=== PATIENT | female | born 1935 | race Caucasian/White ===

== ENCOUNTER → 2016-09-19 | Outpatient (CLI) | payer MEDICARE, BC | END | disposition home or self-care (01) | LOC: PCVCCLINIC 14:30 | PROVIDERS: ATTEND Internal Medicine Cardiovascular Disease | DX: I48.91 Unspecified atrial fibrillation (principal); E78.5 Hyperlipidemia, unspecified; I87.2 Venous insufficiency (chronic) (peripheral); I10 Essential (primary) hypertension; Z88.0 Allergy status to penicillin; Z88.1 Allergy status to other antibiotic agents; Z79.899 Other long term (current) drug therapy; Z85.819 Personal history of malignant neoplasm of unspecified site of lip, oral cavity, and pharynx; M81.0 Age-related osteoporosis without current pathological fracture | CPT/HCPCS: 80061; 93005; G0463 ==

== ENCOUNTER → 2016-12-28 | Outpatient (CLI) | payer MEDICARE, BC ==
--- NOTE | 2016-12-28 17:26 | PCVCIMAG ---
EXAM: BILATERAL SUPERFICIAL VENOUS DUPLEX INDICATION: Leg pain and swelling. FINDINGS: Right leg: No thrombus in the common femoral, main femoral, or popliteal veins. These veins are compressible. Right Great Saphenous Vein: At the saphenofemoral junction the diameter is 9.1 mm, in the mid thigh it is 7.1 mm, and in the calf it is 7.2 mm. There is significant venous insufficiency/reflux throughout. Venous insufficiency/reflux duration is 3.6 seconds. Right Small Saphenous Vein: At the saphenopopliteal junction the diameter is 5.9 mm, and in the calf it is 5.0 mm. There is significant venous insufficiency/reflux throughout. Venous insufficiency/reflux duration is 1.1 seconds. There is a cranial extension present. Left leg: No thrombus in the common femoral, main femoral, or popliteal veins. These veins are compressible. Left Great Saphenous Vein: At the saphenofemoral junction the diameter is 9.9 mm, in the mid thigh it is 6.1 mm, and in the calf it is 6.5 mm. There is significant venous insufficiency/reflux throughout. Venous insufficiency/reflux duration is 2.3 seconds. Left Small Saphenous Vein: At the saphenopopliteal junction the diameter is 5.1 mm, and in the calf it is 5.2 mm. There is significant venous insufficiency/reflux throughout. Venous insufficiency/reflux duration is 3.8 seconds. There is a cranial extension present. IMPRESSION: Right Great Saphenous Vein: Significant venous insufficiency/reflux is present as noted above. Right Small Saphenous Vein: Significant venous insufficiency/reflux is present as noted above. Left Great Saphenous Vein: Significant venous insufficiency/reflux is present as noted above. Left Small Saphenous Vein: Significant venous insufficiency/reflux is present as noted above. LOC:[id number]
== END | disposition home or self-care (01) ==
LOC: PCVCIMAG 15:06
PROVIDERS: ATTEND Nuclear Medicine Nuclear Cardiology
DX: I87.2 Venous insufficiency (chronic) (peripheral) (principal); I10 Essential (primary) hypertension; I48.1 Persistent atrial fibrillation; I07.1 Rheumatic tricuspid insufficiency; E78.00 Pure hypercholesterolemia, unspecified; G25.0 Essential tremor; E03.9 Hypothyroidism, unspecified; M81.0 Age-related osteoporosis without current pathological fracture; M19.90 Unspecified osteoarthritis, unspecified site; Z96.653 Presence of artificial knee joint, bilateral; Z90.49 Acquired absence of other specified parts of digestive tract; Z89.422 Acquired absence of other left toe(s); Z88.0 Allergy status to penicillin; Z88.2 Allergy status to sulfonamides
CPT/HCPCS: 93970; G0463

== ENCOUNTER → 2017-05-16 | Outpatient (CLI) | payer MEDICARE, BC | END | disposition home or self-care (01) | LOC: PCVCCLINIC 14:54 | DX: I10 Essential (primary) hypertension (principal); I48.1 Persistent atrial fibrillation; E78.00 Pure hypercholesterolemia, unspecified; I07.1 Rheumatic tricuspid insufficiency; I87.2 Venous insufficiency (chronic) (peripheral); G47.33 Obstructive sleep apnea (adult) (pediatric); R06.02 Shortness of breath; R94.31 Abnormal electrocardiogram [ECG] [EKG]; Z79.899 Other long term (current) drug therapy | CPT/HCPCS: 80061; 93005; G0463 ==

== ENCOUNTER → 2017-07-03 | Outpatient (CLI) | payer MEDICARE, BC | END | disposition home or self-care (01) | LOC: PCVCIMAG 13:53 | DX: I73.9 Peripheral vascular disease, unspecified (principal); L97.919 Non-pressure chronic ulcer of unspecified part of right lower leg with unspecified severity | CPT/HCPCS: 93925 ==

== ENCOUNTER → 2017-12-03 | Outpatient (CLI) | payer MEDICARE, BC ==
--- NOTE | 2017-12-03 16:25 | PCVCIMAG ---
APPROVED REPORT Study performed: 12/03/2017 14:02:34 EXAM: Comprehensive 2D, Doppler, and color-flow Echocardiogram Patient Location: Echo lab Status: routine BSA: 1.67 HR: 116 bpmBP: 100/70 mmHg Rhythm: Atrial Fibrillation Other Information Study Quality: Good Indications Atrial Fibrillation Dyspnea Hypertension/HDD 2D Dimensions LVEF(%): 47.68 (>50%) IVSd: 7.93 (7-11mm)LVOT Diam: 19.74 (18-24mm) LVDd: 40.17 mm PWd: 6.10 (7-11mm)Ascending Ao: 29.69 (22-36mm) LVDs: 30.69 (25-40mm) Left Atrium: 59.07 (27-40mm) Aortic Root: 28.47 mm LV Single Plane 4CH: 55.25 % Orta's LVEF: 47.68 % Volumes Left Atrial Volume (Systole) Single Plane 4CH: 83.36 mLSingle Plane 2CH: 93.78 mL LA ESV Index: 54.00 mL/m2 Aortic Valve AoV Peak Bong.: 1.12 m/s AO Peak Gr.: 5.68 mmHgLVOT Max P.58 mmHg LVOT Max V: 0.75 m/s DEMOND Vmax: 2.03 cm2 Mitral Valve E/A Ratio: 1.0 MV Decel. Time: 889.93 ms MV E Max Bong.: 0.97 m/s MV A Bong.: 0.94 m/s Pulmonary Valve PV Peak Gr.: 1.13 mmHg Tricuspid Valve TR Peak Bong.: 2.96 m/s TR Peak Gr.: 35.18 mmHg Left Ventricle The left ventricle is normal size. There is normal LV segmental wall motion. There is normal left ventricular wall thickness. Left ventricular systolic function is normal. The left ventricular ejection fraction is within the normal range. LVEF is 50-55%. This study is not technically sufficient to allow evaluation of the LV diastolic function due to atrial fibrillation. Right Ventricle Right ventricle is dilated. The right ventricular systolic function is normal. Atria Left atrium is severely dilated. Right atrium is severely dilated. Aortic Valve The aortic valve is normal in structure. No aortic regurgitation is present. There is no aortic valvular stenosis. Mitral Valve The mitral valve is normal in structure. Mild mitral regurgitation. No evidence of mitral valve stenosis. Tricuspid Valve The tricuspid valve is normal in structure. Moderate to severe tricuspid regurgitation. Pulmonary artery pressure is 43mmhg. Pulmonic Valve The pulmonary valve is normal in structure. Trace pulmonic regurgitation. Great Vessels The aortic root is normal in size. IVC is normal in size and collapses with >50% inspiration Pericardium There is no pericardial effusion. <Conclusion> The left ventricle is normal size. LVEF is 50-55%. This study is not technically sufficient to allow evaluation of the LV diastolic function due to atrial fibrillation. Right ventricle is dilated. Left atrium is severely dilated. Right atrium is severely dilated. The aortic valve is normal in structure. Mild mitral regurgitation. Moderate to severe tricuspid regurgitation. Pulmonary artery pressure is 43mmhg. The aortic root is normal in size. There is no pericardial effusion.
== END | disposition home or self-care (01) ==
LOC: PCVCIMAG 15:51
PROVIDERS: ATTEND Internal Medicine Cardiovascular Disease
DX: I48.91 Unspecified atrial fibrillation (principal); G47.33 Obstructive sleep apnea (adult) (pediatric); E78.00 Pure hypercholesterolemia, unspecified; I10 Essential (primary) hypertension; I87.2 Venous insufficiency (chronic) (peripheral); D68.59 Other primary thrombophilia; R06.09 Other forms of dyspnea
CPT/HCPCS: 80061; 93005; 93306; G0463

== ENCOUNTER → 2018-06-18 | Outpatient (CLI) | payer MEDICARE, BC | END | disposition home or self-care (01) | LOC: PCVCCLINIC 15:59 | PROVIDERS: ATTEND Internal Medicine Cardiovascular Disease | DX: I48.1 Persistent atrial fibrillation (principal); I07.1 Rheumatic tricuspid insufficiency; I10 Essential (primary) hypertension; E78.00 Pure hypercholesterolemia, unspecified; I87.2 Venous insufficiency (chronic) (peripheral); R06.02 Shortness of breath; G47.33 Obstructive sleep apnea (adult) (pediatric); M81.0 Age-related osteoporosis without current pathological fracture; E03.9 Hypothyroidism, unspecified; Z79.899 Other long term (current) drug therapy | CPT/HCPCS: 36415; 80061; 93005; G0463 ==

== ENCOUNTER → 2018-08-13 | Outpatient (CLI) | payer MEDICARE, BC | END | disposition home or self-care (01) | LOC: PCVCCLINIC 15:50 | PROVIDERS: ATTEND Internal Medicine Cardiovascular Disease | DX: I48.1 Persistent atrial fibrillation (principal); E78.00 Pure hypercholesterolemia, unspecified; I10 Essential (primary) hypertension; I87.2 Venous insufficiency (chronic) (peripheral); D68.59 Other primary thrombophilia; E03.9 Hypothyroidism, unspecified; Z88.0 Allergy status to penicillin; Z88.8 Allergy status to other drugs, medicaments and biological substances | CPT/HCPCS: 93005; G0463 ==

== ENCOUNTER → 2018-09-20 | Outpatient (CLI) | payer MEDICARE, BC ==
--- NOTE | 2018-09-20 14:34 | PCVCIMAG ---
APPROVED REPORT Study performed: 09/20/2018 13:25:52 EXAM: Comprehensive 2D, Doppler, and color-flow Echocardiogram Patient Location: Echo lab Status: routine BSA: 1.68 HR: 90 bpmBP: 120/76 mmHg Rhythm: Atrial Fibrillation Indications Pulmonary Hypertension Atrial Fibrillation Dyspnea 2D Dimensions IVSd: 11.05 (7-11mm) LVDd: 33.01 mm PWd: 10.61 (7-11mm) LVDs: 22.31 (25-40mm) Left Atrium: 57.68 (27-40mm) Aortic Root: 32.56 mm LV Single Plane 4CH: 62.53 % LV Single Plane 2CH: 50.59 % Biplane EF: 55.1 % Volumes Left Atrial Volume (Systole) Single Plane 4CH: 86.64 mLSingle Plane 2CH: 113.67 mL LA ESV Index: 62.00 mL/m2 Aortic Valve AoV Peak Bong.: 1.23 m/s AO Peak Gr.: 6.05 mmHgLVOT Max P.70 mmHg LVOT Max V: 0.82 m/s Pulmonary Valve PV Peak Bong.: 0.57 m/sPV Peak Gr.: 1.28 mmHg Tricuspid Valve TR Peak Bong.: 3.39 m/s TR Peak Gr.: 45.94 mmHg Left Ventricle The left ventricle is normal size. There is normal LV segmental wall motion. There is normal left ventricular wall thickness. Left ventricular systolic function is normal. The left ventricular ejection fraction is within the normal range. LVEF is 55-60%. This study is not technically sufficient to allow evaluation of the LV diastolic function due to atrial fibrillation. Right Ventricle Right ventricle is moderate to severely dilated. The right ventricular systolic function is normal. Atria Left atrium is severely dilated. Right atrium is severely dilated. Aortic Valve The aortic valve is normal in structure. No aortic regurgitation is present. There is no aortic valvular stenosis. Mitral Valve The mitral valve is normal in structure. Mild mitral regurgitation. No evidence of mitral valve stenosis. Tricuspid Valve The tricuspid valve is normal in structure. Severe tricuspid regurgitation with PAP of 53 mmHg. Pulmonic Valve The pulmonary valve is normal in structure. There is no pulmonic valvular regurgitation. Great Vessels The aortic root is normal in size. IVC is normal in size and collapses >50% with inspiration. Pericardium There is no pericardial effusion. There is no pleural effusion. <Conclusion> The left ventricle is normal size. LVEF is 55-60%. This study is not technically sufficient to allow evaluation of the LV diastolic function due to atrial fibrillation. Right ventricle is moderate to severely dilated. The right ventricular systolic function is normal. Left atrium is severely dilated. Right atrium is severely dilated. The aortic valve is normal in structure. Mild mitral regurgitation. Severe tricuspid regurgitation with PAP of 53 mmHg. The aortic root is normal in size. There is no pericardial effusion.
== END | disposition home or self-care (01) ==
LOC: PCVCIMAG 13:35
PROVIDERS: ATTEND Internal Medicine Cardiovascular Disease
DX: I08.1 Rheumatic disorders of both mitral and tricuspid valves (principal); I48.1 Persistent atrial fibrillation; R06.00 Dyspnea, unspecified; I27.20 Pulmonary hypertension, unspecified
CPT/HCPCS: 93306

== ENCOUNTER → 2018-11-21 | Outpatient (CLI) | payer MEDICARE, BC ==
--- NOTE | 2018-11-21 15:27 | PCVCIMAG ---
APPROVED REPORT Study performed: 11/21/2018 12:58:16 EXAM: Limited 2D, Doppler, and color-flow Echocardiogram Patient Location: Echo lab Room #: 2Status: routine BSA: 1.68 HR: 83 bpmBP: 134/78 mmHg Rhythm: Atrial Fibrillation Other Information Study Quality: Good Risk Factors: Cardiac Risk Factors: HTN Indications Atrial Fibrillation Dyspnea 2D Dimensions LV Single Plane 4CH: 70.94 % LV Single Plane 2CH: 71.58 % Volumes Left Atrial Volume (Systole) Single Plane 4CH: 87.84 mLSingle Plane 2CH: 67.64 mL Mitral Valve MV E Max Bong.: 0.89 m/s MV PHT: 46.55 ms MVA (PHT): 4.73 cm2 Tricuspid Valve TR Peak Bong.: 3.43 m/s TR Peak Gr.: 46.98 mmHg Left Ventricle The left ventricle is normal size. There is normal left ventricular wall thickness. The left ventricular systolic function is normal. The left ventricular ejection fraction is within the normal range. LVEF is 65-70%. This study is not technically sufficient to allow evaluation of the LV diastolic function due to atrial fibrillation. Right Ventricle Right ventricle is moderately dilated. The right ventricular systolic function is normal. Atria Left atrium is severely dilated. Right atrium is severely dilated. Aortic Valve Aortic valve is trileaflet. Mild aortic valve sclerosis. No aortic regurgitation is present. There is no aortic valvular stenosis. Mitral Valve Mitral valve leaflets are mildly thickened. Severe mitral regurgitation. Tricuspid Valve Severe tricuspid regurgitation. Moderate pulmonary hypertension with a PA pressure of 54 mmHg. Pulmonic Valve There is no pulmonic valvular regurgitation. Great Vessels The aortic root is normal in size. not seen Pericardium There is no pericardial effusion. There is no pleural effusion. <Conclusion> The left ventricle is normal size. LVEF is 65-70%. This study is not technically sufficient to allow evaluation of the LV diastolic function due to atrial fibrillation. Right ventricle is moderately dilated. Left atrium is severely dilated. Right atrium is severely dilated. Aortic valve is trileaflet. Mild aortic valve sclerosis. There is no aortic valvular stenosis. Mitral valve leaflets are mildly thickened. Severe mitral regurgitation. Severe tricuspid regurgitation. Moderate pulmonary hypertension with a PA pressure of 54 mmHg. The aortic root is normal in size. There is no pericardial effusion.
== END | disposition home or self-care (01) ==
LOC: PCVCIMAG 12:29
PROVIDERS: ATTEND Internal Medicine Cardiovascular Disease
DX: I08.3 Combined rheumatic disorders of mitral, aortic and tricuspid valves (principal); I27.20 Pulmonary hypertension, unspecified; I48.1 Persistent atrial fibrillation; I87.2 Venous insufficiency (chronic) (peripheral); G47.33 Obstructive sleep apnea (adult) (pediatric); E03.9 Hypothyroidism, unspecified; M81.0 Age-related osteoporosis without current pathological fracture; E78.00 Pure hypercholesterolemia, unspecified; Z88.0 Allergy status to penicillin; Z88.2 Allergy status to sulfonamides; Z79.899 Other long term (current) drug therapy; Z72.89 Other problems related to lifestyle
CPT/HCPCS: 36415; 80061; 93308; G0463

== ENCOUNTER → 2018-12-06 | Outpatient (CLI) | payer MEDICARE, BC | END | disposition home or self-care (01) | LOC: PCVCCLINIC 13:30 | PROVIDERS: ATTEND Internal Medicine Cardiovascular Disease | DX: I48.0 Paroxysmal atrial fibrillation (principal); I07.1 Rheumatic tricuspid insufficiency; I10 Essential (primary) hypertension; R94.31 Abnormal electrocardiogram [ECG] [EKG]; E78.00 Pure hypercholesterolemia, unspecified; I87.2 Venous insufficiency (chronic) (peripheral); R60.9 Edema, unspecified; G47.33 Obstructive sleep apnea (adult) (pediatric); E03.9 Hypothyroidism, unspecified; Z79.899 Other long term (current) drug therapy; Z88.0 Allergy status to penicillin; Z88.2 Allergy status to sulfonamides | CPT/HCPCS: 36415; 80061; 93005; G0463 ==

== ENCOUNTER → 2019-01-30 | Outpatient (CLI) | payer MEDICARE, BC | END | disposition home or self-care (01) | LOC: PCVCCLINIC 15:12 | PROVIDERS: ATTEND Internal Medicine Cardiovascular Disease | DX: I48.0 Paroxysmal atrial fibrillation (principal); E78.00 Pure hypercholesterolemia, unspecified; G47.33 Obstructive sleep apnea (adult) (pediatric); I10 Essential (primary) hypertension; R60.9 Edema, unspecified; R06.00 Dyspnea, unspecified; I87.2 Venous insufficiency (chronic) (peripheral); D68.59 Other primary thrombophilia; I38 Endocarditis, valve unspecified; E03.9 Hypothyroidism, unspecified; G61.82 Multifocal motor neuropathy; Z79.899 Other long term (current) drug therapy; Z88.0 Allergy status to penicillin | CPT/HCPCS: 36415; 80061; 93005; G0463 ==

== ENCOUNTER → 2019-03-12 | Outpatient (CLI) | payer MEDICARE, BC ==
--- NOTE | 2019-03-12 14:47 | PCVCIMAG ---
EXAM: BILATERAL SUPERFICIAL VENOUS DUPLEX INDICATION: Leg pain and swelling. FINDINGS: Right leg: No thrombus in the common femoral, main femoral, or popliteal veins. These veins are compressible. Right Great Saphenous Vein: At the saphenofemoral junction the diameter is 8.5 mm, in the mid thigh it is 6.9 mm, and in the calf it is 7.6 mm. There is significant venous insufficiency/reflux throughout. Venous insufficiency/reflux duration is 6.4 seconds. Right Small Saphenous Vein: At the saphenopopliteal junction the diameter is 6.0 mm, and in the calf it is 5.5 mm. There is significant venous insufficiency/reflux throughout. Venous insufficiency/reflux duration is 1.8 seconds. There is a cranial extension present. Left leg: No thrombus in the common femoral, main femoral, or popliteal veins. These veins are compressible. Left Great Saphenous Vein: At the saphenofemoral junction the diameter is 8.4 mm, in the mid thigh it is 6.0 mm, and in the calf it is 6.6 mm. There is not significant venous insufficiency/reflux throughout. Venous insufficiency/reflux duration is 0.3 seconds. Left Small Saphenous Vein: At the saphenopopliteal junction the diameter is 5.5 mm, and in the calf it is 5.9 mm. There is significant venous insufficiency/reflux throughout. Venous insufficiency/reflux duration is 1.2 seconds. There is a cranial extension present. IMPRESSION: Right Great Saphenous Vein: Significant venous insufficiency/reflux is present as noted above. Right Small Saphenous Vein: Significant venous insufficiency/reflux is present as noted above. Left Great Saphenous Vein: No significant venous insufficiency/reflux is present as noted above. Left Small Saphenous Vein: Significant venous insufficiency/reflux is present as noted above. LOC:[id number]
== END | disposition home or self-care (01) ==
LOC: PCVCIMAG 13:34
PROVIDERS: ATTEND Internal Medicine Cardiovascular Disease
DX: I87.2 Venous insufficiency (chronic) (peripheral) (principal); E03.9 Hypothyroidism, unspecified; I10 Essential (primary) hypertension; Z87.891 Personal history of nicotine dependence; Z88.0 Allergy status to penicillin
CPT/HCPCS: 93970